=== PATIENT | female | born 1975 | race Hispanic/Latino ===

== ENCOUNTER 2024-04-30 17:05 | Emergency (ER) | payer OTHER ==
[~2024-04-30] VITALS: Ht 162.6 cm; Wt 87.1 kg
[2024-04-30] MEDS: CYCLOBENZAPRINE HCL 10 MG TABLET PO ONE (17:58)
[2024-04-30] MEDS: KETOROLAC 30MG VIAL (30MG/ML) IM ONE (18:01)
[2024-04-30 18:20] LABS: APPEARANCE,URINE CLEAR (CLEAR); BILIRUBIN,URINE NEGATIVE (NEGATIVE); COLOR,URINE YELLOW (YELLOW); GLUCOSE, URINE (UA) NEGATIVE (NEGATIVE); KETONES,URINE 5 mg/dL (NEGATIVE); LEUKOCYTE ESTERASE ,URINE 250 Leu/uL (NEGATIVE); NITRATE,URINE NEGATIVE (NEGATIVE); OCCULT BLOOD,URINE NEGATIVE (NEGATIVE); PH,URINE 5.5 (5.0-8.0); PROTEIN,URINE 10 mg/dL (NEGATIVE)
[2024-04-30 18:22] LABS: ADD UA MICROSCOPIC YES
[2024-04-30 18:27] LABS: HCG,QUALITATIVE URINE NEGATIVE (NEGATIVE)
[2024-04-30 18:28] LABS: BACTERIA,URINE RARE /HPF (None Seen); MUCUS,URINE RARE LPF (None Seen); SQUAMOUS EPITHELIAL CELL,UR FEW /HPF (0-2)
[2024-04-30] MEDS ORDERED: CYCL5TAB PO (19:57)
[2024-04-30] MEDS ORDERED: IBUP-2070 PO (19:57)
[2024-04-30] MEDS ORDERED: NITR100C PO (19:57)
[2024-04-30] MEDS: CEFTRIAXONE 1G VIAL IM ONE (20:20)
[2024-04-30 20:30] VITALS: BP 130/81; PULSE 72; RESP 20; O2SAT 99
== END 2024-04-30 20:32 | disposition home or self-care (01) ==
LOC: EDH 17:05
DX: S29.012A Strain of muscle and tendon of back wall of thorax, initial encounter (principal); M54.50 Low back pain, unspecified; V89.2XXA Person injured in unspecified motor-vehicle accident, traffic, initial encounter; Y93.I9 Activity, other involving external motion; Y92.488 Other paved roadways as the place of occurrence of the external cause; Y99.8 Other external cause status
CPT/HCPCS: 99285; 72131; 87086; 81001; 81025; 72128; 96372 ×2; J0696; J1885